=== PATIENT | male | born 1960 | race Caucasian/White ===

== ENCOUNTER 2017-01-18 19:53 | Emergency (ER) | payer BC ==
[~2017-01-18] VITALS: Ht 177.8 cm; Wt 103.8 kg
[~2017-01-18 19:53] MED LIST: ANUCORT-HC25 MG RE; CIPROFLOXACN500 MG PO; DULCOLAX10 MG RE; FLAGYL500 MG PO; LIPITOR20 MG PO; LISINOPRIL10 MG PO; LORTAB 5/3255 MG PO; LORTAB 7.5 PO; VIGAMOX OP; ZOLOFT50 MG PO
[2017-01-18 20:50] VITALS: BP 116/68
== END 2017-01-18 20:50 | disposition home or self-care (01) | DRG 125 ==
LOC: ED 19:53
DX: H11.31 Conjunctival hemorrhage, right eye (principal); I10 Essential (primary) hypertension; E78.00 Pure hypercholesterolemia, unspecified

== ENCOUNTER 2017-02-12 07:23 | Emergency (ER) | payer BC ==
[~2017-02-12] VITALS: Ht 177.8 cm; Wt 97.5 kg
[2017-02-12 08:11] LABS: HEMATOCRIT 37.8 % (39.0-50.0); HEMOGLOBIN 12.7 g/dl (14.0-18.0); IMMATURE GRANULOCYTES 0.8 % (0.0-1.0); MEAN CORPUSCULAR HGB 30.9 pG CALC (26.0-32.0); MEAN CORPUSCULAR HGB CONC 33.6 g/L CALC (32.0-36.0); NEUT# 3.04 thou/uL (1.82-7.42); RED BLOOD COUNT 4.11 mill/uL (4.70-6.10); RED CELL DISTRI WIDTH 12.1 % (11.5-15.5)
[2017-02-12 08:18] LABS: ACT PARTIAL THROMBO TIME 29.1 SECONDS (20.0-32.5); PROTHROMBIN TIME 10.5 SECONDS (9.0-12.5)
[2017-02-12 08:23] LABS: ALBUMIN 3.9 g/dL (3.2-5.0); ALKALINE PHOSPHATASE 99 u/l (38-126); ANION GAP 13 (6-22 (CALC)); BILIRUBIN, TOTAL 0.4 mg/dL (0.0-1.4); BUN 21 mg/dL (9-20); BUN/CREATININE RATIO 29 (12-20 (CALC)); CALCIUM 9.1 mg/dL (8.4-10.2); CARBON DIOXIDE 24 mmol/l (22-30); CHLORIDE 109 mmol/l (95-108); CREATININE 0.7 mg/dL (0.7-1.3); GFR > 60 ML/MIN (>=60 (CALC)); GFR FOR AFR.AMER. > 60 ML/MIN (>=60 (CALC)); GLUCOSE 142 mg/dL (75-110); POTASSIUM 3.8 mmol/l (3.5-5.1); SGOT/AST 16 u/l (17-59); SGPT/ALT 29 u/l (21-72); SODIUM 142 mmol/l (137-146); TOTAL PROTEIN 6.3 g/dL (6.3-8.2)
[2017-02-12] MEDS ORDERED: REQUIP0.5 MG PO (08:34)
[2017-02-12] MEDS ORDERED: ZYLOPRIM100 MG PO (08:35)
[2017-02-12] MEDS ORDERED: VIVLODEX10 MG PO (08:37)
[2017-02-12] MEDS ORDERED: PRILOSEC20 MG PO (08:38)
[2017-02-12] MEDS ORDERED: MIRALAX3350 N1 PO (09:07)
[2017-02-12 09:38] VITALS: BP 139/86
== END 2017-02-12 09:35 | disposition home or self-care (01) | DRG 395 ==
LOC: ED 07:23
PROVIDERS: Emergency Medicine
DX: K64.4 Residual hemorrhoidal skin tags (principal); I10 Essential (primary) hypertension; E78.00 Pure hypercholesterolemia, unspecified

== ENCOUNTER 2018-09-22 21:58 | Emergency (ER) | payer BC ==
[~2018-09-22] VITALS: Ht 177.8 cm; Wt 112.8 kg
[~2018-09-22 21:58] MED LIST changes: +MIRALAX3350 N1 PO; +PRILOSEC20 MG PO; +REQUIP0.5 MG PO; +VIVLODEX10 MG PO; +ZYLOPRIM100 MG PO
[2018-09-22 22:52] LABS: HEMOGLOBIN 12.9 g/dl (14.0-18.0); IMMATURE GRANULOCYTES 0.6 % (0.0-5.0); MEAN CORPUSCULAR HGB 29.7 pG CALC (26.0-32.0); MEAN CORPUSCULAR HGB CONC 32.3 g/L CALC (32.0-36.0); NEUT# 9.03 thou/uL (1.82-7.42); RED BLOOD COUNT 4.35 mill/uL (4.70-6.10); RED CELL DISTRI WIDTH 11.9 % (11.5-15.5)
[2018-09-22 23:06] LABS: ALKALINE PHOSPHATASE 95 u/l (38-126); ANION GAP 14 (6-22 (CALC)); BILIRUBIN, TOTAL 0.6 mg/dL (0.0-1.4); BUN 22 mg/dL (9-20); BUN/CREATININE RATIO 16 (12-20 (CALC)); CARBON DIOXIDE 29 mmol/l (22-30); CHLORIDE 101 mmol/l (95-108); CREATININE 1.4 mg/dL (0.7-1.3); GFR 52 ML/MIN (>=60 (CALC)); GFR FOR AFR.AMER. > 60 ML/MIN (>=60 (CALC)); POTASSIUM 4.1 mmol/l (3.5-5.1); SGOT/AST 14 u/l (17-59); SODIUM 140 mmol/l (137-146); TOTAL PROTEIN 6.5 g/dL (6.3-8.2)
[2018-09-23 00:25] LABS: URINE BILIRUBIN - DIPSTICK NEGATIVE (NEGATIVE); URINE BLOOD DIPSTICK MODERATE (NEGATIVE); URINE COLOR YELLOW; URINE GLUCOSE - DIPSTICK NEGATIVE (NEGATIVE); URINE KETONE TRACE mg/dL (NEGATIVE); URINE LEUK ESTERASE NEGATIVE (NEGATIVE); URINE NITRITE - DIPSTICK NEGATIVE (Negative); URINE PH 5.5 (4.5-8.0); URINE PROTEIN - DIPSTICK NEGATIVE (NEG-TRACE); URINE SPECIFIC GRAVITY 1.025; URINE UROBILINOGEN - DIPSTICK 0.2 E.U./dL (0.2)
[2018-09-23 00:31] LABS: URINE SQUAMOUS EPITHELIAL CELL MODERATE EPI/hpf (0-FEW)
[2018-09-23] MEDS ORDERED: ZITHROMAX250 MG PO (01:16)
[2018-09-23] MEDS ORDERED: (None)3.5 GM OS (01:16)
[2018-09-23] MEDS ORDERED: ROBITUSSIN AC10 ML PO (01:16)
[2018-09-23] MEDS ORDERED: GENTAMICIN15 ML/BTL OS (01:16)
[2018-09-23 01:37] VITALS: BP 147/48
--- NOTE | 2018-09-25 09:12 | NUR ---
PRELIMINARY BLOOD CULTURE CALLED AND FAXED TO 'S OFFICE. NO NEW ORDERS CONTACTED THE PATIENT WHO REPORTS FEELING MUCH BETTER WITH NO FEVERS OR CHILLS.INFORMED HIM HE MAY RETURN TO ED IF SYTOMTOMS RETURN.
== END 2018-09-23 01:37 | disposition home or self-care (01) | DRG 194 ==
LOC: ED 21:58
PROVIDERS: Emergency Medicine
DX: J18.9 Pneumonia, unspecified organism (principal); N39.0 Urinary tract infection, site not specified; R50.9 Fever, unspecified; R05 Cough; R06.02 Shortness of breath; M79.10 Myalgia, unspecified site; H10.32 Unspecified acute conjunctivitis, left eye
CPT/HCPCS: J1956

== ENCOUNTER 2018-09-28 17:01 | Emergency (ER) | payer BC ==
[~2018-09-28] VITALS: Ht 177.8 cm; Wt 113.0 kg
[~2018-09-28 17:01] MED LIST changes: +(None)3.5 GM OS; +GENTAMICIN15 ML/BTL OS; +ROBITUSSIN AC10 ML PO; +ZITHROMAX250 MG PO
[2018-09-28 18:20] LABS: URINE BILIRUBIN - DIPSTICK NEGATIVE (NEGATIVE); URINE BLOOD DIPSTICK NEGATIVE (NEGATIVE); URINE COLOR YELLOW; URINE GLUCOSE - DIPSTICK NEGATIVE (NEGATIVE); URINE KETONE NEGATIVE (NEGATIVE); URINE LEUK ESTERASE NEGATIVE (NEGATIVE); URINE NITRITE - DIPSTICK NEGATIVE (Negative); URINE PROTEIN - DIPSTICK NEGATIVE (NEG-TRACE); URINE SPECIFIC GRAVITY 1.025; URINE UROBILINOGEN - DIPSTICK 0.2 E.U./dL (0.2)
[2018-09-28 18:21] LABS: HEMATOCRIT 39.5 % (39.0-50.0); IMMATURE GRANULOCYTES 1.9 % (0.0-5.0); MEAN CORPUSCULAR HGB 29.6 pG CALC (26.0-32.0); MEAN CORPUSCULAR HGB CONC 32.9 g/L CALC (32.0-36.0); NEUT# 8.3 thou/uL (1.82-7.42); RED BLOOD COUNT 4.39 mill/uL (4.70-6.10); RED CELL DISTRI WIDTH 11.8 % (11.5-15.5)
[2018-09-28 18:41] LABS: ALBUMIN 4.2 g/dL (3.2-5.0); ALKALINE PHOSPHATASE 99 u/l (38-126); ANION GAP 16 (6-22 (CALC)); BILIRUBIN, TOTAL 0.4 mg/dL (0.0-1.4); BUN 18 mg/dL (9-20); BUN/CREATININE RATIO 24 (12-20 (CALC)); CARBON DIOXIDE 24 mmol/l (22-30); CHLORIDE 103 mmol/l (95-108); CREATININE 0.7 mg/dL (0.7-1.3); GFR > 60 ML/MIN (>=60 (CALC)); GFR FOR AFR.AMER. > 60 ML/MIN (>=60 (CALC)); POTASSIUM 4.5 mmol/l (3.5-5.1); SGOT/AST 19 u/l (17-59); SODIUM 138 mmol/l (137-146)
[2018-09-28] MEDS ORDERED: FLEXERIL PO (20:29)
[2018-09-28 20:40] VITALS: BP 156/70
== END 2018-09-28 20:40 | disposition home or self-care (01) | DRG 392 ==
LOC: ED 17:01
DX: R10.32 Left lower quadrant pain (principal); M54.5 Low back pain